=== PATIENT | female | born 1965 | race Caucasian/White ===

== ENCOUNTER 2017-02-12 14:51 | Emergency (ER) | payer OTHER ==
[~2017-02-12] VITALS: Ht 157.5 cm; Wt 64.5 kg
[2017-02-12] MEDS ORDERED: SIMV20TA2 PO (15:06)
[2017-02-12] MEDS ORDERED: BUPR1TAB52 PO (15:06)
--- NOTE | 2017-02-12 16:29 | REP ---
Right foot four views : There is no fracture or dislocation. Mineralization and joint spaces are normal. There are no calcifications or foreign bodies. Impression: Negative right foot . Signed by Kaz Salter MD 02/12/2017 04:21 P
[2017-02-12] MEDS ORDERED: IBUP-1022 PO (16:41)
[2017-02-12 16:49] VITALS: BP 133/75
== END 2017-02-12 17:00 | disposition home or self-care (01) ==
LOC: M ED 14:51
DX: S93.401A Sprain of unspecified ligament of right ankle, initial encounter (principal); X58.XXXA Exposure to other specified factors, initial encounter; Y92.099 Unspecified place in other non-institutional residence as the place of occurrence of the external cause; Y93.9 Activity, unspecified; Y99.9 Unspecified external cause status; F17.200 Nicotine dependence, unspecified, uncomplicated